=== PATIENT | male | born 1950 | race Caucasian/White ===

== ENCOUNTER → 2017-09-22 | Outpatient (CLI) | payer MEDICARE ==
[~2017-09-22] MED LIST: OMNIPAQUE 350 MG/ML, 75ML BOTTLE ONE
== END | disposition home or self-care (01) ==
LOC: CFH 14:37
PROVIDERS: ATTEND Physician Assistant
DX: R91.1 Solitary pulmonary nodule (principal); J44.9 Chronic obstructive pulmonary disease, unspecified
CPT/HCPCS: 71260; 82565; Q9967

== ENCOUNTER → 2018-06-23 | Outpatient (CLI) | payer MEDICARE | END | disposition home or self-care (01) | LOC: RAD 13:27 | PROVIDERS: ATTEND Physician Assistant | DX: R91.1 Solitary pulmonary nodule (principal); R91.8 Other nonspecific abnormal finding of lung field; R63.4 Abnormal weight loss | CPT/HCPCS: 71260; Q9967 ==

== ENCOUNTER → 2018-07-08 | Outpatient (CLI) | payer MEDICARE | END | disposition home or self-care (01) | LOC: PETCFH 12:57 | PROVIDERS: ATTEND Physician Assistant | DX: R59.9 Enlarged lymph nodes, unspecified (principal); J94.8 Other specified pleural conditions | CPT/HCPCS: 78815; A9552 ==

== ENCOUNTER → 2018-07-15 | Outpatient (CLI) | payer MEDICARE ==
[~2018-07-15] MED LIST changes: +GADOXETATE DISODIUM 2.5 MMOL/10 ML ONE; -OMNIPAQUE 350 MG/ML, 75ML BOTTLE ONE
== END | disposition home or self-care (01) ==
LOC: RAD 13:13
PROVIDERS: ATTEND Physician Assistant
DX: K82.8 Other specified diseases of gallbladder (principal); N28.1 Cyst of kidney, acquired; K80.20 Calculus of gallbladder without cholecystitis without obstruction
CPT/HCPCS: 74183; A9581

== ENCOUNTER 2018-09-30 06:45 | Day surgery (SDC) | payer MEDICARE ==
[2018-09-23 10:57] VITALS: BP 107/63
[~2018-09-30] VITALS: Ht 170.2 cm; Wt 56.2 kg
[~2018-09-30 06:45] MED LIST changes: +ASPI-496 PO; +BENA20TA4 PO; -GADOXETATE DISODIUM 2.5 MMOL/10 ML ONE; +SOFO1TAB PO; +TRAZ50TA66 PO; +VALS80TA3 PO
[2018-09-30] MEDS ORDERED: LACTATED RINGERS 1,000 ML IV SCH (07:27)
[2018-09-30] MEDS ORDERED: FENTANYL PF 100 MCG/2ML ONE (08:09)
[2018-09-30] MEDS ORDERED: ROCURONIUM 10 MG/ML,10ML ONE (08:11)
[2018-09-30] MEDS ORDERED: PROPOFOL 10 MG/ML, 20ML ONE (08:11)
[2018-09-30] MEDS ORDERED: CEFAZOLIN 1,000 MG ONE (08:11)
[2018-09-30] MEDS ORDERED: SUCCINYLCHOLINE 20 MG/ML, 10ML ONE (08:11)
[2018-09-30] MEDS ORDERED: ONDANSETRON 2MG/ML, 2ML IV PRN (09:00)
[2018-09-30] MEDS ORDERED: MORPHINE SULFATE 4 MG/ML, 1ML IVPush PRN (09:00)
[2018-09-30] MEDS ORDERED: PROMETHAZINE 25 MG/ML, 1ML IV PRN (09:00)
[2018-09-30] MEDS ORDERED: MEPERIDINE/PF 25MG/0.5ML IVPush PRN (09:00)
[2018-09-30] MEDS ORDERED: HALOPERIDOL 5 MG/ML IV PRN (09:00)
[2018-09-30] MEDS ORDERED: EPHEDRINE 50 MG/ML, 1ML IVPush PRN (09:00)
[2018-09-30] MEDS ORDERED: hydrALAzine 20 MG/ML, 1ML IV PRN (09:00)
[2018-09-30] MEDS ORDERED: PROMETHAZINE 12.5 MG SUPP PR PRN (09:00)
[2018-09-30] MEDS ORDERED: FENTANYL PF 100 MCG/2ML IV PRN (09:00)
[2018-09-30] MEDS ORDERED: DIAZEPAM 5 MG/ML, 2ML IVPush PRN (09:00)
[2018-09-30] MEDS ORDERED: ALBUTEROL SULFATE 2.5 MG/3 ML NPPB PRN (09:00)
[2018-09-30] MEDS ORDERED: LABETALOL 5MG/ML, 20ML IV PRN (09:00)
[2018-09-30] MEDS ORDERED: MIDAZOLAM 1 MG/ML, 2ML IV PRN (09:00)
[2018-09-30] MEDS ORDERED: OXYcodone 5 MG/5 ML ORAL.SOL UDC PO PRN (09:00)
[2018-09-30] MEDS ORDERED: HYDROmorphone 2 MG/ML, 1ML IVPush PRN (09:00)
[2018-09-30] MEDS ORDERED: ONDANSETRON ODT 8 MG PO PRN (09:00)
[2018-09-30] MEDS ORDERED: OMNIPAQUE 350 MG/ML, 50 ML BOTTLE ONE (09:03)
== END 2018-09-30 10:35 | disposition home or self-care (01) ==
LOC: OUT 06:45
PROVIDERS: ATTEND Internal Medicine Gastroenterology
DX: K80.50 Calculus of bile duct without cholangitis or cholecystitis without obstruction (principal); K29.60 Other gastritis without bleeding; K76.6 Portal hypertension; B18.2 Chronic viral hepatitis C; K31.89 Other diseases of stomach and duodenum; J44.9 Chronic obstructive pulmonary disease, unspecified; I10 Essential (primary) hypertension; Z90.49 Acquired absence of other specified parts of digestive tract; Z98.890 Other specified postprocedural states; Z72.0 Tobacco use
CPT/HCPCS: 43261; 43264; 43274; 74328; 88305; C1769; J0330; J0690; J2704; J3010; Q9967